=== PATIENT | female | born 1990 | race African-American/Black ===

== ENCOUNTER 2016-11-14 20:42 | Emergency (ER) | payer OTHER ==
--- NOTE | 2016-11-14 22:48 | ED ---
Codi Bledsoe Edward, scribed for Brandyn King MD on 11/14/16 at 2212 . Headache - HPI Summary HPI Summary: 26 y/o female presents to ED c/o gradual onset CUELLO starting this morning that got worse at 17:00. Associated sx: L arm and L leg numbness ("went to sleep") in the afternoon. Denies motor weakness. Pt now c/o pressure on R side of the forehead. - History Of Current Complaint Chief Complaint: EDHeadache Stated Complaint: HEADACHE/ LEFT SIDE NUMBNESS Time Seen by Provider: 11/14/16 22:05 Hx Obtained From: Patient Onset/Duration: Gradual Onset Timing: Constant Character: Pressure - R side of forehead Location of Headache: Other: - R side forehead Associated Signs And Symptoms: Other (Noted In Comments) - Numbness in L arm and L leg - Allergies/Home Medications Allergies/Adverse Reactions: Allergies Allergy/AdvReac Type Severity Reaction Status Date / Time Penicillins Allergy Hives Verified 11/14/16 20:45 PMH/Surg Hx/FS Hx/Imm Hx Previously Healthy: No Endocrine/Hematology History: Denies: Hx Diabetes - Surgical History Surgery Procedure, Year, and Place: None Infectious Disease History: No Infectious Disease History: Denies: Traveled Outside the [place] in Last 30 Days - Family History Known Family History: Positive: Hypertension, Diabetes, Other - Stroke - Social History Alcohol Use: Rare Hx Substance Use: No Substance Use Type: Reports: None Hx Tobacco Use: No Smoking Status (MU): Never Smoked Tobacco Review of Systems Constitutional: Negative Eyes: Negative ENT: Negative Cardiovascular: Negative Respiratory: Negative Gastrointestinal: Negative Genitourinary: Negative Musculoskeletal: Negative Skin: Negative Positive: Headache, Numbness - L arm and leg Psychological: Normal All Other Systems Reviewed And Are Negative: Yes Physical Exam Triage Information Reviewed: Yes Vital Signs On Initial Exam: Initial Vitals Temp Pulse Resp BP Pulse Ox 98.0 F 83 16 117/80 100 11/14/16 20:45 11/14/16 20:45 11/14/16 20:45 11/14/16 20:45 11/14/16 20:45 Vital Signs Reviewed: Yes Appearance: Positive: Well-Appearing, No Pain Distress Skin: Positive: Warm Head/Face: Positive: Normal Head/Face Inspection Eyes: Positive: EOMI, UMM ENT: Positive: Hearing grossly normal Neck: Positive: Supple, Nontender Respiratory/Lung Sounds: Positive: Breath Sounds Present Cardiovascular: Positive: RRR Abdomen Description: Positive: Nontender, Soft Musculoskeletal: Positive: Strength/ROM Intact Neurological: Positive: Sensory/Motor Intact, Alert, Oriented to Person Place, Time, Normal Gait Psychiatric: Positive: Affect/Mood Appropriate Diagnostics - Vital Signs Vital Signs Temp Pulse Resp BP Pulse Ox 11/14/16 20:48 97.7 F 83 16 117/80 100 11/14/16 20:45 98.0 F 83 16 117/80 100 - Laboratory Lab Statement: Any lab studies that have been ordered have been reviewed, and results considered in the medical decision making process. - CT BRAIN CT CT Interpretation: No Acute Changes - NO ACUTE BRAIN PARENCHYMAL ABNORMALITY. NO HEMORRHAGE, MASS OR ACUTE TERRITORIAL INFARCT. CLEAR VISUALIZED PARANASAL SINUSES. VISUALIZED MASTOID AIR CELLS CLEAR. CT Interpretation Completed By: Radiologist Re-Evaluation - Re-Evaluation First Eval Change: Improved Headache Course/Dx - Course Assessment/Plan: 26 y/o female presents to ED c/o gradual onset CUELLO starting this morning that got worse at 17:00. Associated sx: L arm and L leg numbness ( "went to sleep") in the afternoon. Denies motor weakness. Pt now c/o pressure on R side of the forehead. BRAIN CT SHOWS NO ACUTE BRAIN PARENCHYMAL ABNORMALITY. NO HEMORRHAGE, MASS OR ACUTE TERRITORIAL INFARCT. CLEAR VISUALIZED PARANASAL SINUSES. VISUALIZED MASTOID AIR CELLS CLEAR. Pt will be d/c home with f/u with PCP. - Diagnoses Provider Diagnoses: Headache Discharge - Discharge Plan Condition: Stable Disposition: HOME Patient Education Materials: Acute Headache (ED) Referrals: [facility] [Primary Care Provider] - 3 Days (Please f/u in 2-3 days) The documentation as recorded by the Codi sauceda Edward accurately reflects the service I personally performed and the decisions made by , Brandyn King MD.
[2016-11-14 23:28] VITALS: BP 116/60
--- NOTE | 2016-11-15 07:41 | RAD ---
HISTORY: Headache COMPARISONS: None TECHNIQUE: Multiple contiguous axial CT scans were obtained of the head without intravenous contrast. FINDINGS: HEMORRHAGE/INFARCT: There is no hemorrhage or acute infarct. MASSES/SHIFT: There is no mass or shift. EXTRA-AXIAL SPACES: There are no extra-axial fluid collections. SULCI AND VENTRICLES: The sulci and ventricles are normal in size and position for the patient's stated age. CEREBRUM: There are no focal parenchymal abnormalities. BRAINSTEM: There are no focal parenchymal abnormalities. CEREBELLUM: There are no focal parenchymal abnormalities. VESSELS: The vessels are grossly normal. PARANASAL SINUSES: The paranasal sinuses are clear. ORBITS: The orbits are unremarkable. BONES AND SOFT TISSUE: No bone or soft tissue abnormalities are noted. OTHER: None IMPRESSION: NO ACUTE INTRACRANIAL PATHOLOGY.
== END 2016-11-14 23:30 | disposition home or self-care (01) ==
LOC: ED 20:42
DX: R51 Headache (principal)
CPT/HCPCS: 70450; 99282